=== PATIENT | female | born 1950 | race Caucasian/White ===

== ENCOUNTER → 2017-03-31 | Outpatient (CLI) | payer MEDICARE, BC | LOC: MC.RAD 09:40 | DX: Z12.31 Encounter for screening mammogram for malignant neoplasm of breast (principal) ==

== ENCOUNTER 2018-08-01 13:51 | Inpatient (IN) | payer MEDICARE, BC ==
[~2018-08-01] VITALS: Ht 162.7 cm; Wt 82.6 kg
[2018-12-26] VITALS (11 sets, daily range): BP systolic 120–151; BP diastolic 54–70; PULSE 62–86; TEMP 98–98.5
[2018-12-26] MEDS ORDERED: PRINIVIL10 MG PO (05:48)
[2018-12-26] MEDS ORDERED: SYNTHROID0.112 MG/T PO (05:48)
[2018-12-26] MEDS ORDERED: FOSAMAX 70MG TA70 MG PO (05:49)
--- NOTE | 2018-12-26 06:27 | NUR ---
PT ADMITTED TO ROOM 330 @ 0520, ASSESSMENTS COMPLETE, VSS, CONSENT ON CHART.
--- NOTE | 2018-12-26 11:10 | NUR ---
PT TO ROOM 330 @ 1012 WITH REPORT FROM MUSHTAQ WILSON PACU. PT IS AROUSEABLE, LUNGS CLEAR, BOWEL SOUNDS PRESENT. POSITIVE PEDAL PULSES. OCCLUSIVE DRESSING TO LEFT KNEE. IV TO RIGHT WRIST IV FLUIDS PER PUNP. PT DENIES PAIN. FREIND AT BEDSIDE.
--- NOTE | 2018-12-26 15:30 | NUR ---
LAGUNAS CATHETER TO DD WITH CLEAR YELLOW URINE IN BAG.
--- NOTE | 2018-12-26 18:50 | NUR ---
REPORT TO BC RN.
--- NOTE | 2018-12-26 20:13 | NUR ---
Patient reports pain to left knee 02/04. Medicated with Tramadol 100mg po at this time with HS meds. Has IVF infusing to right hand without redness or swelling. Is alert and oriented x4. Has large drsg to left knee, good pedal pulses noted and ice pack in place. Is aware she will need to walk this shift.
--- NOTE | 2018-12-26 20:30 | NUR ---
Ambulates in hallway with [employer]AT[employer]MENT [employer]. Does well.
--- NOTE | 2018-12-26 22:15 | NUR ---
Patient rating pain to left knee 8/10, medicated with Oxycodone 10mg po at this time.
--- NOTE | 2018-12-27 00:30 | NUR ---
Patient reports good relief with Oxycodone.
--- NOTE | 2018-12-27 02:50 | NUR ---
Medicated with scheduled Tylenol and Oxycodone 5mg for pain to left knee. Reports good rest so far this shift.
[2018-12-27 04:46] VITALS: BP 112/43; PULSE 85; TEMP 98.2
--- NOTE | 2018-12-27 05:20 | NUR ---
Reports significant pain to low back and left thigh. Medicated with Morphine 2mg IVP at this time.
--- NOTE | 2018-12-27 06:20 | NUR ---
Patient reports pain 4/10, does not want any pain meds at this time.
[2018-12-27 06:57] LABS: HEMATOCRIT 37.9 % (37.0-47.0); HEMOGLOBIN 12.5 g/dl (12.5-16.0)
--- NOTE | 2018-12-27 07:12 | NUR ---
Report to Poli WILSON
--- NOTE | 2018-12-27 07:19 | NUR ---
REPORT FROM BC WILSON.
[2018-12-27 07:50] VITALS: BP 124/49; PULSE 72; TEMP 98.5
--- NOTE | 2018-12-27 08:58 | NUR ---
Initial visit; Patient thanked Title I Director for looking in on her and offering spiritual care. Patient states she has no spiritual needs at this time.
--- NOTE | 2018-12-27 09:50 | NUR ---
PT UP IN BED THIS AM. AM MEDS GIVEN PO MEDS FOR PAIN CONTROLL GIVEN ORDERED. PT NOW WANTS NARCOTIC MEDICATIONS ALONG WITH NON NARCOTIC.
[2018-12-27 11:29] VITALS: BP 118/59; PULSE 71; TEMP 98.7
--- NOTE | 2018-12-27 15:07 | NUR ---
GASTON met with the patient to discuss a discharge plan. The pt lives alone in [place]. The pt does not use DME and reports independence with ADLs. The pt's PCP is Dr. Hill and receives her medications from [facility] in [facility] with no difficulties. The pt does not have advanced directives in the EMR but does have them completed and designate her brother Nico Cueva and her son Andrea Richey. The pt plans to return home with outpatient physical therapy [facility]. There are no additional needs at this time. Nico Cueva (brother) Britney Richey (son)
[2018-12-27 15:57] VITALS: BP 120/47; PULSE 70; TEMP 97.4
--- NOTE | 2018-12-27 19:17 | NUR ---
report to Issa huff.
[2018-12-27 19:37] VITALS: BP 126/49; PULSE 91; TEMP 99
--- NOTE | 2018-12-27 20:00 | NUR ---
Pt. laying in bed at this time. Pt. is A&OX3, assessment complete. INT to rt. hand patent. Pt. reports pain at a 5 on pain scale. Dressing to lt. knee CDI. Pt. assisted up to the bathroom at this time and then ambulated in the thakur. Pt. tolerted well. Pt. positioned in bed for comfort. Pt. denies needs at this time.
[2018-12-27 23:06] VITALS: BP 107/81; PULSE 109; TEMP 99
[2018-12-28 03:55] VITALS: BP 121/53; PULSE 98; TEMP 99.2
[2018-12-28] MEDS ORDERED: ASPI325T6 PO (06:44)
[2018-12-28] MEDS ORDERED: ULTRAM 50MG TAB50 MG PO (06:45)
[2018-12-28] MEDS ORDERED: ROXICODONE 55 MG/TAB PO (06:45)
[2018-12-28] MEDS ORDERED: SENNA-S 50 MG-81 TAB PO (06:46)
--- NOTE | 2018-12-28 06:47 | NUR ---
bedside shift report received from STEVE Parsons
[2018-12-28 07:00] VITALS: BP 143/57; PULSE 89; TEMP 100
--- NOTE | 2018-12-28 07:00 | NUR ---
assisted up to bathroom and voided qs, then out and into recliner, T 100 and she is encouraged to C&DB and use incentive spirometer, verbalizes understanding, will order breakfast soon
[2018-12-28 07:29] LABS: HEMOGLOBIN 12.9 g/dl (12.5-16.0)
--- NOTE | 2018-12-28 07:50 | NUR ---
resting in chair, full assessment completed, see interventions for further info
--- NOTE | 2018-12-28 08:55 | NUR ---
occupational therapy in and assisting her with taking a shower
--- NOTE | 2018-12-28 09:07 | NUR ---
ambulated out to thakur with physical therapy for group exercises
--- NOTE | 2018-12-28 09:45 | NUR ---
back to room after therapy and resting in recliner
--- NOTE | 2018-12-28 10:16 | NUR ---
Follow-up visit; Patient thanked for looking in on her again today and wishing her a good day.
--- NOTE | 2018-12-28 11:30 | NUR ---
assisted up to bathroom and then out and back to bed, friend in to visit
[2018-12-28 12:19] VITALS: BP 140/63; PULSE 85; TEMP 98.5
--- NOTE | 2018-12-28 12:38 | NUR ---
ready for lunch, c/o pain 09/04 and medicated with roxicodone 5mg
--- NOTE | 2018-12-28 13:08 | NUR ---
ambulated out to thakur with physical therapy for group exercises
--- NOTE | 2018-12-28 14:00 | NUR ---
discharge instructions given, verbalizes understanding, will call when she is ready to leave
--- NOTE | 2018-12-28 14:44 | NUR ---
discharged per WC
== END 2018-12-28 14:44 | disposition home or self-care (01) | DRG 470 ==
LOC: JCC 09-06 07:30
PROVIDERS: ADMIT Orthopaedic Surgery
PROC: 0SRD0J9 Replacement of Left Knee Joint with Synthetic Substitute, Cemented, Open Approach (ICD-10-PCS; principal; 2018-12-26 07:30)
DX: M17.12 Unilateral primary osteoarthritis, left knee (principal); I10 Essential (primary) hypertension; E78.00 Pure hypercholesterolemia, unspecified; E03.9 Hypothyroidism, unspecified; M51.36 Other intervertebral disc degeneration, lumbar region; F41.9 Anxiety disorder, unspecified
CPT/HCPCS: A4314; A9284; C1776; J0690; J2250; J2270; J2405; J2704; J7030; J7120

== ENCOUNTER → 2018-08-01 | Outpatient (CLI) | payer MEDICARE, BC | LOC: MC.RAD 09:56 | DX: Z12.31 Encounter for screening mammogram for malignant neoplasm of breast (principal) ==

== ENCOUNTER → 2018-12-09 | Outpatient (CLI) | payer MEDICARE, BC | LOC: ZCOL.LAB 09:43 | DX: Z01.812 Encounter for preprocedural laboratory examination (principal); Z86.14 Personal history of Methicillin resistant Staphylococcus aureus infection ==

== ENCOUNTER → 2019-08-02 | Outpatient (CLI) | payer MEDICARE, BC ==
[~2019-08-02] MED LIST: ASPI325T6 PO; FOSAMAX 70MG TA70 MG PO; PRINIVIL10 MG PO; ROXICODONE 55 MG/TAB PO; SENNA-S 50 MG-81 TAB PO; SYNTHROID0.112 MG/T PO; ULTRAM 50MG TAB50 MG PO
== END ==
LOC: MC.RAD 11:10
DX: Z12.31 Encounter for screening mammogram for malignant neoplasm of breast (principal)

== ENCOUNTER 2019-08-30 09:25 | Inpatient (IN) | payer MEDICARE, BC ==
[~2019-08-30] VITALS: Ht 162.6 cm; Wt 82.1 kg
[2019-09-06] VITALS (9 sets, daily range): BP systolic 110–154; BP diastolic 45–63; PULSE 60–100; TEMP 97.8–98.7
--- NOTE | 2019-09-06 | NUR ---
Pt is currently sleeping in bed and has her call light within reach at this time. Bed is in lowest position
--- NOTE | 2019-09-06 09:40 | NUR ---
PATIENT BACK IN ROOM 329 POST OP. A&O. VSS. DENIES PAIN IN RLE AT THIS TIME. PATIENT IS UNABLE TO MOVE BLE. RTK DRESSING IS CD&I WITH ACEWRAP AND ICE PACK INPLACE. TEDS TO LLE. SCD'S TO BLE. POSITIVE PEDAL PULSES TO BLE. PATIENT TOLERATING LIQUIDS AT BEDSIDE. NO C/O N/V. IV FLUIDS INFUSING INTO LEFT AC IV VIA PUMP. HEAD TO TOE WNL. FAMILY AT BEDSIDE. CALL LIGHT IN REACH.
--- NOTE | 2019-09-06 11:58 | NUR ---
First visit from the supervisor commissary production. No needs right now.
--- NOTE | 2019-09-06 13:53 | NUR ---
SW met with the patient to discuss discharge plan. The patient lives alone in [place]. She states that her son, Douglas (ph#[phone]), also lives in [place] and that she has good friend support here. She reports independence with ADLs and has a FWW, walking sticks, and a stool riser. The patient's PCP is Dr. Imani Hill and she receives her medications at [facility] in [facility]. She reports no difficulties obtaining her meds. The patient does not have advanced directives in EMR, but she states that she does have them completed. She states that her brother, Nico Cueva, is her DPOA-HC. The patient plans to return home and receive outpatient PT at [facility] upon discharge. No additional needs at this time.
--- NOTE | 2019-09-06 14:15 | NUR ---
PATIENT AMBULATED TO BEDSIDE COMMODE WITH STEADY GAIT AND WALKER. PATIENT WAS ABLE TO VOID AND TOLERATED ACTIVITY WELL. PAIN IN RLE IS WELL MANAGED. PATIENT NOW BACK IN BED TO COMFORT. CALL LIGHT IN REACH.
--- NOTE | 2019-09-06 20:00 | NUR ---
Pt currently sitting up in bed. Pt does not have any pain at this time. Pt assessment has no abnormal findings. She has been tolerating fluids well, she also has been ambulating to the restroom to void. Pt has ice on her right knee and has no other concerns at this time. Pt did state that she was nervous about her pain and wants to stay on top on the pain. She stated she has a rough time with her last surgery and request that she can get pain medications on time. She has been doing well and was able to ambulate well tonight down the thakur and to the restroom. Pt call light is within reach and bed is in lowest position.
[2019-09-07] VITALS: BP 113/53; PULSE 58; TEMP 98.2
[2019-09-07 04:29] VITALS: BP 106/47; PULSE 67; TEMP 98.7
[2019-09-07 08:23] LABS: HEMATOCRIT 39.5 % (37.0-47.0); HEMOGLOBIN 12.9 g/dl (12.5-16.0)
[2019-09-07 08:35] VITALS: BP 123/48; PULSE 66; TEMP 98.4
--- NOTE | 2019-09-07 09:18 | NUR ---
PT UP TO BR WITH SBAX1. RETURNED TO RECLINER. CURRENTLY WORKING WITH PT. PO PAIN MEDS GIVEN FOR PAIN CONTROLL. PT DENIES N/V. DRESSING CDI.
[2019-09-07 12:37] VITALS: BP 105/54; PULSE 61; TEMP 98
--- NOTE | 2019-09-07 12:45 | NUR ---
DRESSING CHANGE COMPLETE, EDGES OF INCISION WELL APPROXIMATED WITH NO DRAINAGE NOTED.
--- NOTE | 2019-09-07 20:30 | NUR ---
PT ASKING FOR PAIN MEDS, GIVEN OXYCODONE 5MG PO AT THIS TIME, PAIN IS 3/10. SL TO LEFT AC WITHOUT REDNESS OR SWELLING. AMBULATING TO BATHROOM WITH WALKER AND STEADY GAIT. NEW ICE PACK APPLIED TO RT KNEE. AQUACEL DRSG WITH SMALL PEA SIZE SPOT OF DRAINAGE.
[2019-09-07 21:45] VITALS: BP 128/46; PULSE 63; TEMP 98.4
[2019-09-08 00:31] VITALS: BP 111/43; PULSE 57; TEMP 98.8
--- NOTE | 2019-09-08 00:40 | NUR ---
PT GIVEN OXYCODONE 5MG FOR RIGHT KNEE PAIN 09/04. ICE PACK IN PLACE. PT HAD BEEN UP TO BATHROOM AND IS NOW BACK IN BED.
--- NOTE | 2019-09-08 01:15 | NUR ---
PT ASKING FOR SECOND OXYCODONE SHE HAS INCREASE IN KNEE PAIN. SCD'S PLACE ON PT AT THIS TIME WELL.
[2019-09-08 03:32] VITALS: BP 106/49; PULSE 71; TEMP 98.4
--- NOTE | 2019-09-08 06:20 | NUR ---
TAKES OXYCODONE 10MG PO FOR PAIN 6/10 TO RT KNEE.
[2019-09-08] MEDS ORDERED: ASPI325T6 PO (06:52)
[2019-09-08] MEDS ORDERED: ROXICODONE 55 MG/TAB PO (06:53)
[2019-09-08] MEDS ORDERED: SENNA-S 50 MG-81 TAB PO (06:53)
[2019-09-08] MEDS ORDERED: NORCO 325 MG-7.1 TAB PO (06:53)
[2019-09-08 07:58] VITALS: BP 136/59; PULSE 83; TEMP 98.2
[2019-09-08] MEDS ORDERED: ZOFRAN 4MG T4 MG/TAB PO (11:10)
--- NOTE | 2019-09-08 11:30 | NUR ---
Patient has been doing well this morning with PT and OT. She was able to shower without issues. She been having some nausea this morning. She stated this happened with her previous surgery. Pain is well controlled with oral pain medications. Cherise called into [employer] for patient. No other changes at this time. Call light within reach.
[2019-09-08 12:32] VITALS: BP 115/59; PULSE 66; TEMP 98.3
--- NOTE | 2019-09-08 14:45 | NUR ---
Patient is discharging home. Discharge instructions discussed with patient. No questions verbalized. INT discontinued. Copies of discharge instructions sent with patient. Explained when to take off dressing and leave it off. All belongings packed up and sent with patient. Explained when her follow up appointments and when PT appontment. Patient is being walked out via wheel chair.
== END 2019-09-08 14:45 | disposition home or self-care (01) | DRG 470 ==
LOC: JCC 09-06 05:08
PROVIDERS: ADMIT Orthopaedic Surgery
PROC: 0SRC0J9 Replacement of Right Knee Joint with Synthetic Substitute, Cemented, Open Approach (ICD-10-PCS; principal; 2019-09-06 07:30)
DX: M17.11 Unilateral primary osteoarthritis, right knee (principal); K58.9 Irritable bowel syndrome, unspecified; I10 Essential (primary) hypertension; E78.00 Pure hypercholesterolemia, unspecified; K59.00 Constipation, unspecified; Z96.652 Presence of left artificial knee joint; F41.9 Anxiety disorder, unspecified; M47.892 Other spondylosis, cervical region; E03.9 Hypothyroidism, unspecified; Z90.49 Acquired absence of other specified parts of digestive tract
CPT/HCPCS: A9284; C1776; J0690; J1100; J1885; J2250; J2405; J2704; J7030; J7120

== ENCOUNTER → 2020-10-09 | Outpatient (CLI) | payer MEDICARE, BC ==
[~2020-10-09] MED LIST changes: +NORCO 325 MG-7.1 TAB PO; +ZOFRAN 4MG T4 MG/TAB PO
== END ==
LOC: MC.RAD 09:00
DX: Z12.31 Encounter for screening mammogram for malignant neoplasm of breast (principal)

== ENCOUNTER → 2021-11-28 | Outpatient (CLI) | payer MEDICARE, BC | LOC: MC.RAD 10:18 | DX: Z12.31 Encounter for screening mammogram for malignant neoplasm of breast (principal) ==